=== PATIENT | male | born 1965 | race Caucasian/White ===

== ENCOUNTER 2023-01-29 11:21 | Emergency (ER) | payer OTHER, SELFPAY ==
[2023-01-29 11:22] VITALS: BP 155/86; PULSE 104; RESP 18; TEMP 36.1; O2SAT 98
--- NOTE | 2023-01-29 11:40 | EKG12_ITS ---
Test Reason : Blood Pressure : / mmHG Vent. Rate : 099 BPM Atrial Rate : 099 BPM P-R Int : 160 ms QRS Dur : 086 ms QT Int : 346 ms P-R-T Axes : 025 012 021 degrees QTc Int : 444 ms Normal sinus rhythm Normal ECG Confirmed by RAMYA KEITA, TERENCE ([id number]), assignment desk editor DANILO HAMILTON ([id number]) on 02/10/2023 7:57:20 AM Referred By: MICHELLE Confirmed By:TRINO BUI MD
--- NOTE | 2023-01-29 11:43 | NURSING ---
NO OLD EKGS
[2023-01-29 11:57] VITALS: BP 136/86; PULSE 71; RESP 17; O2SAT 99
[2023-01-29 11:57] LABS: Absolute Lymphocyte Count 1.47 X10^3/uL (0.83-4.51); Absolute Neutrophil Count 6.1 X10^3/uL (2.0-7.7); Basophil# 0.03 X10^3/uL; Basophil% 0.4 % (0-1); Eosinophil# 0.11 X10^3/uL; Eosinophils% 1.3 % (0-5); Hematocrit 45.4 % (40-54); Hemoglobin 15.8 g/dL (13.0-16.5); Lymphocyte # 1.47 X10^3/ul (0.83-4.51); Lymphocyte % 17.4 % (19-41); Mean Corp Hgb Conc 34.8 g/dL (32-36); Mean Corpuscular Hgb 30.9 pg (27.0-32.0); Mean Corpuscular Volume 88.8 fL (80-94); Mean Platelet Vol. 9.9 fl (6.2-12.0); Monocyte# 0.75 X10^3/uL; Monocyte% 8.9 % (0-10); NRBC Flagged by Analyzer 0 % (0-5); Neutrophil # 6.09 X10^3/uL (2.7-7.7); Neutrophil % 71.9 % (47-70); Platelet Count 202 K/mm3 (150-450); RBC Distribution Width SD 39.1 fl (35.1-43.9); Red Blood Count 5.11 M/mm3 (4.6-6.2); White Blood Count 8.5 K/mm3 (4.4-11.0)
--- NOTE | 2023-01-29 11:58 | RAD_ITS ---
STUDY: X-RAY CHEST REASON FOR EXAM: Male, 57 years old. Pleuritic chest pain left side history of spontaneous TECHNIQUE: PA and lateral views of the chest. COMPARISON: None. FINDINGS: EKG electrodes are seen. Focal right lower lobe infiltrate. Mild increased markings at the left lung base. There is borderline cardiomegaly. Normal mediastinum and melissa. Normal visualized pulmonary arteries. Normal visualized aortic arch and descending thoracic aorta. There are diffuse degenerative changes of the visualized thoracic spine. Normal visualized ribs, clavicles, and shoulders. There is no demonstrated abnormality of the visualized soft tissue structures of the upper abdomen. RAD/Chest PA and Lateral IMPRESSION: Infiltrate in the right lower lobe with increased markings at the left lung base. Electronically Signed: Soy Duckworth MD at 12:33 EDT ,
[2023-01-29 12:11] LABS: D-Dimer Quantitative (DVT/PE) 0.31 FEU/ug/m (0.27-0.49)
[2023-01-29 12:12] LABS: Anion Gap 7 (5-15); BUN 8 mg/dL (7-18); BUN/Creat Ratio 8.5 RATIO (10-20); Calcium,Total 8.9 mg/dL (8.5-10.1); Chloride 106 mmol/L (98-107); Creatinine, Serum 0.94 mg/dL (0.70-1.30); EST Glomerular Filtration Rate 88 mL/min (>60); Est Glom Filt Rate - Afr Amer 106 mL/min (>60); Glucose 134 mg/dL (74-106); Potassium 3.7 mmol/L (3.5-5.1); Sodium Level 138 mmol/L (136-145); Troponin-I HS 3 pg/mL (3.0-78.0)
--- NOTE | 2023-01-29 12:26 | EDS_ITS ---
HPI History of Present Illness Chief Complaint: Chest Pain Detail of Chief Complaint: Left-sided chest pain Informant: patient and spouse/S.O. Onset/Context/Timing Onset: Hours (0400) Activity at onset: sudden Timing: Intermittent Quality: Positive for Aching and Stabbing Location: Left Chest Current Severity: Present with deep breathing Maximum Severity: Severe Worsened By: Breathing; Not Worsened By Exertion, Movement of Arm, Movement of Torso, Eating, Palpation or Coughing Relieved By: Nothing Associated Symptoms: Positive for - (Dyspnea with walking); Negative for Nausea, Vomiting, Diaphoresis, Dyspnea, Cough, Fever, Lightheadedness, Acid Reflux or Palpitations Narrative Narrative: Patient is a 57-year-old male. He has history of spontaneous pneumothorax appro ximately 30 years ago. He denies history of PE or DVT. 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 He denies leg pain, swelling or discoloration. He does have history of reflux. He states he is compliant with his medicine. He denies black or maroon-colored stool. He denies intolerance to food. He denies fever, chills night sweats. He does report slight cough. Cough is nonproductive. He denies rhinorrhea, congestion, postnasal drainage sore throat. He denies urologic symptoms. He denies history of trauma. Patient states he was asleep in his truck when he was awakened because of the chest pain. There was no radiation. He did have shortness of breath. Presently he is not short of breath. He does report shortness of breath with walking. He denies hemoptysis. Patient reports allergy to aspirin with angioedema. Patient had cardiac arrest after nitroglycerin at [facility] was transferred to [facility]. The cardiac catheterization which was normal. 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.); Negative for Recent Immobilization, Prior DVT or PE, Cancer or OCP + Smoking + >/=35 TAD Risk Factors: Negative for Marfan's Syndrome, Hypertension or Family History [facility] Medical History GERD (gastroesophageal reflux disease) Home Medications omeprazole 20 mg capsule,delayed release 40 mg PO DAILY 01/29/23 [History Last Taken Unknown] Allergy/AdvReac Type Severity Reaction Status Date / Time aspirin Allergy Swelling Verified 01/29/23 11:24 nitroglycerin Allergy HEART Verified 01/29/23 11:24 STOPPED Surgical History Hx of cardiac catheterization no surgical history (He had a heart cath 7 years ago which was clean.) Social History Smoking Status: Never smoker Prior Cardiac Testing/Procedures Prior Cardiac Testing/Procedures: Cardiac Angiogram (7 years ago at [facility] and was normal) ROS ROS ED Constitutional Constitutional ED: Denies chills, fever(s), subjective, sweats or weight loss Eyes Eyes: Denies blurry vision, change in vision or diplopia ENT ENT ED: Denies ear pain, rhinorrhea or sore throat Cardiovascular Cardiovascular: Reports as per HPI; Denies orthopnea or paroxysmal nocturnal dyspnea Respiratory/Chest Respiratory/Chest: Reports dyspnea on exertion; Denies cough, dyspnea, orthopnea or paroxysmal nocturnal dyspnea Gastrointestinal Gastrointestinal: Denies abdominal pain, nausea or vomiting Musculoskeletal Musculoskeletal: Denies arthralgias, back pain, myalgias or neck pain Integumentary Denies rash Psychiatric Psychiatric: Denies anxiety or depression Hematologic/Lymphatic Hematologic/Lymphatic: Denies easy bleeding or easy bruising EXAM Physical Exam Const Vital Signs: 01/29/23 11:22 01/29/23 11:57 01/29/23 12:28 Temperature 97 F L Temperature Source Temporal Pulse Rate 104 H 71 76 Respiratory Rate 18 17 15 Blood Pressure 155/86 H 136/86 H 133/96 H Blood Pressure Mean 109 102 108 Pulse Ox 98 99 99 Oxygen Delivery Method Room Air Room Air Room Air Positive well nourished, well developed and obese General Appearance ED: well developed and NAD; Negative for pallor Nutritional Appearance: obese HEENT Reports TM's clear and moist mucous membranes normocephalic and atraumatic Tympanic Membrane ED: Yes TM's clear Eyes PERRL and EOMs intact bilaterally General Eye ED: Negative for pale conjunctiva or scleral icterus Neck no lymphadenopathy and no JVD Neck Narrative: Trachea is midline. There is no stridor. Chest Wall inspection of chest normal and palpation of chest normal Resp normal respiratory effort and clear to auscultation bilaterally Cardio regular rate, regular rhythm, S1 normal heart sound, S2 normal heart sound and no murmurs GI normal to inspection, nondistended, normoactive bowel sounds, soft to palpation, non-tender, non-distended and no masses; Negative for hepatosplenomegaly Back/Spine no CVA tenderness and no thoracic nor lumbar tenderness Extremity normal to inspection Extremity Narrative: There is no asymmetry, swelling, discoloration, leg vein distention, palpable cords or tenderness along the distribution of the deep venous system. General Extremety ED: Negative for edema, pulses abnormal or tenderness General Extremity: Negative for edema or pulses abnormal Neuro oriented x3, CN's II-XII intact bilaterally and no sensory deficits noted Sensorium / Orientation: awake and alert Psych mental status grossly normal Skin no rashes or lesions noted and no wounds General Skin Exam: Negative for jaundice or pallor Heart Score History: Slightly/Non-Suspicious ECG: Normal Age: >45 - <65 years Risk Factors: No Risk Factors Score: 1 MDM MDM MDM Narrative Medical decision making narrative: Differential diagnosis would include pleurisy, spontaneous pneumothorax, reflux, coronary disease, pneumonia. Will obtain EKG, chest x-ray appropriate blood work including troponin and D-dimer. Lab Data Attestation: I reviewed the patient's lab results. Lab results narrative: White count is normal. Basic metabolic panel is normal except for a glucose of 134 with a normal CO2 and anion gap.. Troponin is normal. Troponin with 8 hours of pain is normal. D-dimer was normal. Labs: Laboratory Results - last 24 hr 01/29/23 11:45 WBC 8.5 RBC 5.11 Hgb 15.8 Hct 45.4 MCV 88.8 MCH 30.9 MCHC 34.8 RDW Std Deviation 39.1 RDW Coeff of Wanda 12.0 Plt Count 202 MPV 9.9 Immature Gran % (Auto) 0.100 Neut % (Auto) 71.9 H Lymph % (Auto) 17.4 L [place] % (Auto) 8.9 Eos % (Auto) 1.3 Baso % (Auto) 0.4 Absolute Neuts (auto) 6.1 Absolute Lymphs (auto) 1.47 Nucleated RBC % 0 D-Dimer Quant (PE/DVT) 0.31 Sodium 138 Potassium 3.7 Chloride 106 Carbon Dioxide 25.0 Anion Gap 7 BUN 8 Creatinine 0.94 Est GFR (MDRD) Af Amer 106 Est GFR (MDRD) Non-Af 88 BUN/Creatinine Ratio 8.5 L Glucose 134 H Calcium 8.9 Troponin I High Sens 3 Radiography Chest X-Ray - ED: 2 View (Was independently reviewed interpreted by me at 1225 as unremarkable. Limited story volume. There may be atelectasis left base. Cardiac silhouette is unremarkable. Borderline cardiomegaly. Perihilar regions normal. Osseous structures are unremarkable.) and Read by ED Physician Treatment and Re-Evaluation :: With a normal troponin, normal D-dimer and normal EKG with a heart score of 1 and the fact that the pain is pleuritic, the concern is that this is noncardiac and will treat with NSAIDs. Discharge Plan Triage Chief Complaint: Chest Pain ED Provider: Georgi Zamora Dx/Rx/DC Orders Clinical Impression: Pleuritic chest pain, Elevated blood pressure reading without diagnosis of hypertension, History of gastroesophageal reflux (GERD) Instructions: ED Hypertension, To Be Confirmed, ED Pleurisy Prescriptions: No Action omeprazole 20 mg capsule,delayed release(DR/EC) 40 mg PO DAILY Primary Care Provider: Theodore Cardozo Referrals: Theodore Cardozo MD [Primary Care Provider] - 1-2 Weeks Activity Restrictions/Additional Instructions: You may take 4 Advil tablets every 8 hours for the next 3 to 5 days or 2 Aleve tablets every 12 hours for your chest pain. Disposition Disposition: Home, Self Care
[2023-01-29 12:28] VITALS: BP 133/96; PULSE 76; RESP 15; O2SAT 99
== END 2023-01-29 12:59 | disposition home or self-care (01) ==
PROVIDERS: Emergency Provider Emergency Medicine; PCP Family Medicine; Visit Provider Emergency Medicine
DX: R07.89 Other chest pain (principal); R06.02 Shortness of breath; R03.0 Elevated blood-pressure reading, without diagnosis of hypertension; Z88.6 Allergy status to analgesic agent; K21.9 Gastro-esophageal reflux disease without esophagitis; Z79.899 Other long term (current) drug therapy; E66.9 Obesity, unspecified
CPT/HCPCS: 71046; 80048; 84484; 85025; 85379; 93005; 99284; A4216